=== PATIENT | female | born 1950 | race Caucasian/White ===

== ENCOUNTER 2020-04-10 09:56 | Outpatient (CLI) | payer MEDICARE, SELFPAY ==
--- NOTE | 2020-04-10 10:01 | XRR_ITS ---
PROCEDURE INFORMATION: Exam: XR Left Foot Complete Exam date and time: 04/10/2020 10:35 AM Age: 69 years old Clinical indication: Pain; Left; Patient HX: Bumped her toe/foot TECHNIQUE: Imaging protocol: XR Left foot. Views: 3 or more views. COMPARISON: No relevant prior studies available. FINDINGS: Bones/joints: Normal. Soft tissues: Normal. XR/XR foot LT min 3V* [id number] IMPRESSION: No acute fracture.
== END 2020-04-10 09:57 | disposition home or self-care (01) ==
PROVIDERS: PCP Family Medicine; Visit Provider Nurse Practitioner Family
DX: M79.672 Pain in left foot (principal)
CPT/HCPCS: 73630

== ENCOUNTER → 2020-04-29 09:32 | Outpatient (BNVA) | payer MEDICARE, SELFPAY | PROVIDERS: PCP Family Medicine; Referring Provider Family Medicine; Visit Provider Podiatrist Foot & Ankle Surgery | DX: S99.922A Unspecified injury of left foot, initial encounter (principal); M20.20 Hallux rigidus, unspecified foot; X58.XXXA Exposure to other specified factors, initial encounter | CPT/HCPCS: 73630 ==

== ENCOUNTER 2020-05-21 13:08 | Outpatient (CLI) | payer MEDICARE, SELFPAY | END 2020-05-21 13:09 | disposition home or self-care (01) | LOC: SPT 13:09 | PROVIDERS: PCP Family Medicine; Visit Provider Podiatrist Foot & Ankle Surgery | DX: Z46.89 Encounter for fitting and adjustment of other specified devices (principal); M20.22 Hallux rigidus, left foot | CPT/HCPCS: L3030 ==

== ENCOUNTER 2020-12-10 08:10 | Outpatient (CLI) | payer MEDICARE, SELFPAY ==
--- NOTE | 2020-12-10 08:14 | MM_ITS ---
WS: [id number] BILATERAL DIGITAL SCREENING MAMMOGRAPHY WITH CAD CLINICAL INFORMATION: SCREENING HISTORY: Screening mammogram. No current complaints. COMPARISON: TECHNIQUE: Bilateral CC and MLO views. FINDINGS: The breasts are composed of heterogeneous fibroglandular density tissue, which can limit the detectio n of small underlying mass lesions. No suspicious mass, asymmetry, calcifications, or architectural d istortion. No evidence of malignancy. Vascular calcification. Benign punctate calcifications. MM/[place] [id number] IMPRESSION: BI-RADS: 2-Benign FOLLOW UP: 1 Year Follow-up Recommend return to annual screening mammography.
== END 2020-12-10 08:11 | disposition home or self-care (01) ==
PROVIDERS: PCP Family Medicine; Visit Provider Family Medicine
DX: Z12.31 Encounter for screening mammogram for malignant neoplasm of breast (principal)
CPT/HCPCS: 77067

== ENCOUNTER 2022-02-15 10:30 | Outpatient (CLI) | payer MEDICARE, SELFPAY ==
--- NOTE | 2022-02-15 10:41 | MM_ITS ---
WS: [id number] VIEWS: MLO and CC views both breasts. 3D digital tomosynthesis is also included in this exam. Comparison made with prior exam of 06/30/2016, 08/14/2018, 12/10/2020,. Findings: There was no sign of mass, architectural distortion or suspicious calcification in either breast. He terogeneously dense MM/[place] [id number] Impression: BI-RADS: 2-Benign FOLLOW-UP: 1 Year Follow-up This mammogram was also analyzed by the Computer Aided Detection System R2 Imag e Sales Exec.
== END 2022-02-15 10:31 | disposition home or self-care (01) ==
LOC: RADSHAW 10:33
PROVIDERS: PCP Family Medicine; Visit Provider Family Medicine
DX: Z12.31 Encounter for screening mammogram for malignant neoplasm of breast (principal)
CPT/HCPCS: 77063; 77067

== ENCOUNTER 2022-04-20 13:34 | Outpatient (CLI) | payer MEDICARE, SELFPAY | END 2022-04-20 13:35 | disposition home or self-care (01) | LOC: SPT 13:35 | PROVIDERS: PCP Family Medicine; Visit Provider Podiatrist Foot & Ankle Surgery | DX: Z46.89 Encounter for fitting and adjustment of other specified devices (principal); M20.20 Hallux rigidus, unspecified foot | CPT/HCPCS: L3030 ==

== ENCOUNTER → 2022-06-10 08:02 | Outpatient (BNVA) | payer MEDICARE, SELFPAY | PROVIDERS: PCP Family Medicine; Visit Provider Family Medicine | DX: M19.90 Unspecified osteoarthritis, unspecified site (principal); Z00.00 Encounter for general adult medical examination without abnormal findings | CPT/HCPCS: 80053; 80061 ==

== ENCOUNTER → 2022-11-30 15:23 | Outpatient (BNVA) | payer MEDICARE, SELFPAY | PROVIDERS: PCP Family Medicine; Visit Provider Podiatrist Foot & Ankle Surgery | DX: M20.22 Hallux rigidus, left foot (principal) | CPT/HCPCS: 99214 ==

== ENCOUNTER 2023-02-22 09:28 | Outpatient (CLI) | payer MEDICARE, SELFPAY ==
--- NOTE | 2023-02-22 09:36 | MM_ITS ---
WS: [id number] BILATERAL SCREENING DIGITAL TOMOSYNTHESIS MAMMOGRAM WITH CAD HISTORY: SCREENING COMPARISON: 02/15/2022, 12/10/2020 Bilateral CC and MLO views with tomosynthesis and synthetic mammography submitted. Computer aided det ection analyzed. Breast composition: The breasts are heterogeneously dense, which may obscure small masses. No suspici ous masses, microcalcifications or architectural distortion. Bilateral breast arterial calcifications . MM/[place] [id number] IMPRESSION: BI-RADS: 2-Benign FOLLOW UP: 1 Year Follow-up
== END 2023-02-22 09:29 | disposition home or self-care (01) ==
LOC: RAD 09:31
PROVIDERS: PCP Family Medicine; Visit Provider Family Medicine
DX: Z12.31 Encounter for screening mammogram for malignant neoplasm of breast (principal)
CPT/HCPCS: 77063; 77067

== ENCOUNTER → 2023-05-04 10:31 | Outpatient (BNVA) | payer MEDICARE, SELFPAY | PROVIDERS: PCP Family Medicine; Visit Provider Family Medicine | DX: I10 Essential (primary) hypertension (principal); Z00.00 Encounter for general adult medical examination without abnormal findings; Z13.6 Encounter for screening for cardiovascular disorders; M26.649 Arthritis of unspecified temporomandibular joint | CPT/HCPCS: 80053; 80061 ==

== ENCOUNTER → 2023-06-21 09:59 | Outpatient (BNVA) | payer MEDICARE, SELFPAY | PROVIDERS: PCP Family Medicine; Referring Provider Family Medicine; Visit Provider Nurse Practitioner Family | DX: L50.1 Idiopathic urticaria (principal); L81.4 Other melanin hyperpigmentation; D22.5 Melanocytic nevi of trunk; L85.3 Xerosis cutis; L57.8 Other skin changes due to chronic exposure to nonionizing radiation; L82.1 Other seborrheic keratosis; L82.0 Inflamed seborrheic keratosis | CPT/HCPCS: 17110; 99203 ==

== ENCOUNTER → 2023-10-16 09:51 | Outpatient (BNVA) | payer MEDICARE, SELFPAY | PROVIDERS: PCP Family Medicine; Visit Provider Podiatrist Foot & Ankle Surgery | DX: M20.22 Hallux rigidus, left foot (principal) | CPT/HCPCS: 73630; 99214 ==

== ENCOUNTER 2023-10-20 09:05 | Day surgery (SDC) | payer MEDICARE, SELFPAY ==
[2023-10-20] VITALS (9 sets, daily range): BP systolic 137–181; BP diastolic 69–93; PULSE 74–81; RESP 16–17; TEMP 36.1–36.6; O2SAT 94–96
--- NOTE | 2023-10-20 | XR_ITS ---
WS: [id number] Left foot, C-arm fluoroscopy views, 10/20/2023 Clinical Data: OR pc, 1st metatarsal phalangeal fusion Comparison: Left foot, 10/16/2023 Findings: Dr. Monsalve fused the left first MTP joint. Impression: Left first MTP joint fusion.
[2023-10-20] MEDS: scopolamine 1.5 Patch 1 PATCH TRANSDERMA (09:34)
[2023-10-20] MEDS: gabapentin 300 mg Capsule PO (09:35)
[2023-10-20] MEDS: sodium chloride 0.9% 1,000 ML 30 ML IV (09:35)
[2023-10-20] MEDS: CELEcoxib 200 mg Capsule 400 MG PO (09:35)
--- NOTE | 2023-10-20 09:56 | ANES.PREANE2 ---
Pre-Anesthetic Assessment Height/Weight: Height 1.57 m Weight 56.699 kg Temp Pulse Resp BP Pulse Ox O2 Del Method 97.5 F L 75 16 172/80 96 Room Air 10/20/23 09:14 10/20/23 09:14 10/20/23 09:14 10/20/23 09:14 10/20/23 09:14 10/20/23 09:29 Preop Diagnosis: Left hallux rigidus Operation Date: 10/20/23 10:30 Proposed Procedures p Left first metatarsophalangeal joint fusion 94491,M21.612(Left) - Lionel Monsalve DPM Familial anesthetic complications: None Was Beta Jody taken within 24 hours: N/A Was Clonidine taken within 24 hours: N/A Last intake: Intake Last Liquid Date 10/19/23 Last Liquid Time 21:00 Last Solid Date 10/19/23 Last Solid Time 21:00 Social No alcohol and No tobacco Exam alert, oriented x 3, clear to auscultation bilaterally and regular rate & rhythm Airway Mallampati: Class I Dentition: full CV/HEM Hypertension Anesthetic Plan ASA status: 2 Anesthesia: MAC Risk of > 500 ml blood loss (7ml/kg in children): No Medications/Allergies Home Medications Medication Instructions Recorded Confirmed Last Taken Type Sole supports #1 ea 04/20/22 10/16/23 Unknown Rx losartan 50 mg tablet 50 mg PO DAILY blood pressure #90 07/10/23 10/19/23 10/19/23 Rx tabs citalopram 20 mg tablet 20 mg PO DAILY 10/19/23 10/19/23 10/19/23 History hydrocodone 10 mg-acetaminophen 1 tab PO Q6H PRN pain 7 days #28 10/19/23 Unknown Rx 325 mg tablet tabs magnesium oxide-magnesium amino 300 cap PO DAILY 10/19/23 10/19/23 10/19/23 History acid chelate 300 mg capsule (Magnesium (oxide/AA chelate)) meloxicam 15 mg tablet 15 mg PO DAILY yes 10/19/23 10/19/23 10/12/23 History trazodone 50 mg tablet 50 mg PO BEDTIME 10/19/23 10/19/23 10/19/23 History Allergies Allergy/AdvReac Type Severity Reaction Status Date / Time No Known Allergies Allergy Verified 10/20/23 09:18 Current Medications Generic Name Dose Route Start Last Admin Trade Name Freq PRN Reason Stop Dose Admin Sodium Chloride 1,000 mls @ 30 mls/hr 10/20/23 09:15 10/20/23 09:35 Sodium Chloride 0.9% IV 10/21/23 09:14 30 mls/hr .Q24H WILLARD Administration PFSH Anesthesia Surgical History (Updated 10/19/23 @ 18:28 by Lionel Monsalve DPM) S/P foot surgery H/O: hysterectomy Hx of knee surgery Family History Father CAD (coronary artery disease) Mother Hypertension Denies family history of Diabetes Stroke Social History Smoking and tobacco/nicotine status: never used tobacco/nicotine Alcohol intake: never Substance/Drug Use: never Current occupational status: retired Data Anesthesia Cardiac Studies: No Data to Display
--- NOTE | 2023-10-20 10:08 | W.PM.OPSUD ---
Surgery/Procedure H&P Update DATE OF PROCEDURE: October 20, 2023 DATE H&P PERFORMED: 10/20/23 H&P UPDATE INFORMATION: I have reviewed H&P completed within last 30 days, I have examined patient prior to procedure, No changes to prior documentation and H&P is in [facility] EMR on date indicated PREOP DIAGNOSIS: Left hallux rigidus PRIMARY INDICATION FOR PROCEDURE: Hallux rigidus PLANNED PROCEDURE: Operation Date: 10/20/23 10:45 Proposed Procedures p Left first metatarsophalangeal joint fusion 33496,M21.612(Left) - Lionel Monsalve DPM
[2023-10-20] MEDS: ceFAZolin 2,000 MG in sodium chloride 0.9% (plus) 50 ML 100 MG IV (10:24)
[2023-10-20] MEDS: BUPivacaine 0.5% INJ 10 mL INJECTION ×2 (10:44→10:46)
[2023-10-20] MEDS: BUPivacaine 0.5% INJ 10 mL 20 ML (10:47)
[2023-10-20] MEDS: BUPivacaine liposome 13.3 mg/mL SDV 10 mL 266 MG INFILTRATI (10:50)
--- NOTE | 2023-10-20 11:27 | P.OP_ITS ---
Operative Report Date of procedure: October 20, 2023 Pre-op diagnosis: Left hallux rigidus Post-op diagnosis: Left hallux rigidus Post-op findings: Left hallux rigidus Procedure done: Left first metatarsophalangeal joint fusion. CPT code 66763 Implants: [place] first metatarsal phalangeal joint primary arthrodesis plate [place] 2.7 millimeter screws distally x3 [place] 3.5 millimeter screws proximally X3 3.0 mm homerun screw 3-0 Vicryl, 4-0 Vicryl, 4-0 nylon Specimens removed/disposition: None Pathology: None Surgeon: Lionel Monsalve DPM Centralized Traffic Control Operator: Julio Jimenez Heather, Jama Estimated blood loss: 2mL 42 IV fluids: 0 Urine output: 0 Complications: None Findings: Left hallux rigidus Brief History: Ms. Campos is a pleasant 73-year-old female who presents to clinic with complaints of arthritic type pain to the left great toe joint. She complains of bony spurring that is tenting her skin causes pain when wearing shoes due to rubbing. She also complains of a deep arthritic type pain and decreased motion at her left great toe joint that affects her overall quality of life. She has pain with everyday activities such as standing or walking. Would like to discuss t reatment options. Previous treatments have included supportive shoes, stretching, meloxicam and custom molded functional orthotics. Discussed joint preserving versus joint destructive procedures and recovery. Patient states that joint fusion is most appealing to her as this would be a more reliable procedure with less likely recurrence of further procedures. I reviewed at length with the patient, the risks, potential complications, benefits, alternatives, expectations, and typical outcomes associated with the surgery. The risks and potential complications were explained in detail, including but not limited to infection, wound dehiscence or soft tissue complications, bleeding and hematoma, chronic edema, neuritis or nerve damage producing numbness or chronic pain, CRPS, failure to relieve pain or worsening pain, thick / painful / unsightly scar, limited motion / stiffness, malposition, delayed union, malunion, or nonunion, fracture, reaction to implants, anesthetic complications, venous thromboembolism, and deformity recurrence. I discussed the notion of no regrets with the patient as it pertains to complications and outcomes. The patient seemed to understand the nature of the proposed care and required convalescence. They asked appropriate questions, answered to their satisfaction. They are aware no guarantees can be made as to a satisfactory outcome and they understand there may be other possible unforeseen complications or outcomes not listed here that will be treated accordingly if they arise. There were no written or implied guarantees given to the patient. They gave informed consent to proceed. Procedure: Under mild sedation the patient was brought to the operating room and remained on the gurney in supine position. A timeout was performed. Anesthesia was then administered by the anesthesia service. Local anesthesia was injected by myself consisting of 20 cc of 0.5% Marcaine plain in a left male block fashion with an additional 20 cc of Exparel at the operative site subcutaneously in a grid like fashion per livestock broker recommendation and technique. Well-padded pneumatic tourniquet was applied to the left ankle. The left lower extremity was then scrubbed, prepped and draped utilizing normal aseptic technique. Left foot was exanguinated with an Esmarch bandage and the tourniquet inflated to 250 mmHg. Attention was directed to the left first metatarsal phalangeal joint. A careful incision was made over the first metatarsal phalangeal joint, and dissection was carried through subcutaneous tissue to expose the joint capsule. The joint capsule was meticulously opened, revealing the metatarsal phalangeal joint. Attention was then turned towards preparing the fusion site. The articular surfaces of the joint were denuded to create a suitable environment for fusion, ensuring proper alignment and angulation of the bones. Utilizing standard AO technique the fusion hardware, a [place] 28 metatarsal phalangeal joint arthrodesis plate, was then positioned dorsally over the joint. This dorsal locking plate was carefully secured with three 2.7 millimeter screws distally and three 3.5 millimeter screws proximally. To enhance the stability of the fusion, a 3.0 millimeter compression screw was also inserted. Throughout the procedure, the placement of the hardware and the positioning of the fusion site were continuously monitored and confirmed with the aid of mini C-arm fluoroscopy, ensuring precise alignment and optimal hardware placement. Placement of the left first metatarsal phalangeal joint arthrodesis site was 5 degrees dorsiflexion, neutral in the frontal plane and slight valgus. Following the successful placement of the fusion hardware, the joint capsule was closed using 3-0 Vicryl sutures. The subcutaneous tissue was approximated with 4-0 Vicryl, and the skin closure was meticulously completed in a layered fashion using 4-0 nylon sutures. To conclude the procedure, the surgical site was dressed with Adaptic, sterile 4 x 4 gauze, and Kerlix, followed by securing it with an Alberto wrap. A cam boot was then applied to the left foot to provide immobilization and support during the initial phase of recovery. The procedure was executed without complications, and the alignment and stability achieved were deemed satisfactory for optimal healing and recovery of the left hallux rigidus.
[2023-10-20] MEDS: HYDROcodone-acetaminophen 10-325 mg Tablet 1 TAB PO (11:57)
--- NOTE | 2023-10-20 13:36 | ANE.PACU2 ---
Inpatient post-anesthesia follow up: Airway intact: Yes Vital signs: Temperature 97 F Pulse Rate 74 Respiratory Rate 16 Blood Pressure 181/93 Pulse Oximetry 95 Oxygen Delivery Me thod Room Air Oxygen Flow Rate Fraction of Inspir ed Oxygen Hydration adequate: Yes Nausea and vomiting: No Pain level: 1 Mental status: Baseline
== END 2023-10-20 12:32 | disposition home or self-care (01) ==
PROVIDERS: PCP Family Medicine; Visit Provider Podiatrist Foot & Ankle Surgery
PROC: (CPT 28740; principal; 2023-10-20 10:20)
DX: M20.22 Hallux rigidus, left foot (principal); I10 Essential (primary) hypertension
CPT/HCPCS: 28750; 73620; 76000; C1713; C1762; C9290; J0690; J2704; J3010; J3490; J7030

== ENCOUNTER → 2023-10-24 15:23 | Outpatient (BNVA) | payer MEDICARE, SELFPAY | PROVIDERS: PCP Family Medicine; Visit Provider Podiatrist Foot & Ankle Surgery | DX: Z98.890 Other specified postprocedural states (principal) | CPT/HCPCS: 99024 ==

== ENCOUNTER → 2023-11-02 15:27 | Outpatient (BNVA) | payer MEDICARE, SELFPAY | PROVIDERS: PCP Family Medicine; Visit Provider Podiatrist Foot & Ankle Surgery | DX: Z98.890 Other specified postprocedural states (principal) | CPT/HCPCS: 73630; 99024 ==

== ENCOUNTER → 2023-11-16 13:54 | Outpatient (BNVA) | payer MEDICARE, SELFPAY | PROVIDERS: PCP Family Medicine; Visit Provider Podiatrist Foot & Ankle Surgery | DX: Z98.890 Other specified postprocedural states (principal) | CPT/HCPCS: 73630; 99024 ==

== ENCOUNTER → 2023-11-30 14:00 | Outpatient (BNVA) | payer MEDICARE, SELFPAY | PROVIDERS: PCP Family Medicine; Visit Provider Podiatrist Foot & Ankle Surgery | DX: Z98.890 Other specified postprocedural states (principal) | CPT/HCPCS: 73630; 99024 ==

== ENCOUNTER → 2024-01-18 11:09 | Outpatient (BNVA) | payer MEDICARE, SELFPAY | PROVIDERS: PCP Family Medicine; Visit Provider Podiatrist Foot & Ankle Surgery | DX: Z98.890 Other specified postprocedural states (principal) | CPT/HCPCS: 73630; 99024 ==

== ENCOUNTER 2024-02-28 09:26 | Outpatient (CLI) | payer MEDICARE, SELFPAY ==
--- NOTE | 2024-02-28 10:19 | MM_ITS ---
WS: [id number] BILATERAL SCREENING DIGITAL TOMOSYNTHESIS MAMMOGRAM WITH CAD HISTORY: SCREENING COMPARISON: 02/22/2023, 12/10/2020 Bilateral CC and MLO views with tomosynthesis and synthetic mammography submitted. Computer aided det ection analyzed. Breast composition: The breasts are heterogeneously dense, which may obscure small masses. No suspici ous masses, microcalcifications or architectural distortion. Bilateral moderate breast arterial calci fications. IMPRESSION: MM/[place] [id number] BI-RADS: 2-Benign FOLLOW UP: 1 Year Follow-up
== END 2024-02-28 09:27 | disposition home or self-care (01) ==
LOC: RAD 09:27
PROVIDERS: PCP Family Medicine; Visit Provider Family Medicine
DX: Z12.31 Encounter for screening mammogram for malignant neoplasm of breast (principal)
CPT/HCPCS: 77063; 77067

== ENCOUNTER → 2024-05-07 09:15 | Outpatient (BNVA) | payer MEDICARE, SELFPAY | PROVIDERS: PCP Family Medicine; Visit Provider Family Medicine | DX: Z13.6 Encounter for screening for cardiovascular disorders (principal); I10 Essential (primary) hypertension; Z00.00 Encounter for general adult medical examination without abnormal findings | CPT/HCPCS: 80053; 80061 ==

== ENCOUNTER → 2024-06-21 09:34 | Outpatient (BNVA) | payer MEDICARE, SELFPAY | PROVIDERS: PCP Family Medicine; Visit Provider Nurse Practitioner Family | DX: L21.8 Other seborrheic dermatitis (principal); L50.1 Idiopathic urticaria; D22.5 Melanocytic nevi of trunk; L81.4 Other melanin hyperpigmentation; L85.3 Xerosis cutis | CPT/HCPCS: 99214 ==

== ENCOUNTER 2025-02-28 08:11 | Outpatient (CLI) | payer MEDICARE, SELFPAY ==
--- NOTE | 2025-02-28 08:17 | MM_ITS ---
WS: [id number] BILATERAL SCREENING DIGITAL TOMOSYNTHESIS MAMMOGRAM WITH CAD HISTORY: SCREENING COMPARISON: 02/28/2024, 02/22/2023, 02/15/2022 Bilateral CC and MLO views with tomosynthesis and synthetic mammography submitted. Computer aided detection analyzed. Breast composition: The breasts are heterogeneously dense, which may obscure small masses. Bilateral breast arterial calcifications. Dense asymmetric soft tissue in each breast is stable over multiple prior years. No architectural distortion. MM/MM scr BI tomosynthesis [id number] IMPRESSION: BI-RADS: 2 - Benign FOLLOW UP: 1 Year Follow-up
== END 2025-02-28 08:12 | disposition home or self-care (01) ==
LOC: RAD 08:12
PROVIDERS: PCP Family Medicine; Visit Provider Family Medicine
DX: Z12.31 Encounter for screening mammogram for malignant neoplasm of breast (principal); R92.333 Mammographic heterogeneous density, bilateral breasts; R92.1 Mammographic calcification found on diagnostic imaging of breast; N64.89 Other specified disorders of breast
CPT/HCPCS: 77063; 77067

== ENCOUNTER → 2025-05-20 08:30 | Outpatient (BNVA) | payer MEDICARE, SELFPAY | PROVIDERS: PCP Family Medicine; Visit Provider Family Medicine | DX: Z00.00 Encounter for general adult medical examination without abnormal findings (principal); I10 Essential (primary) hypertension | CPT/HCPCS: 80053; 80061; 82306; 85025 ==

== ENCOUNTER → 2025-06-11 10:40 | Outpatient (BNVA) | payer MEDICARE, SELFPAY | PROVIDERS: PCP Family Medicine; Visit Provider Family Medicine | DX: N39.0 Urinary tract infection, site not specified (principal) | CPT/HCPCS: 81000 ==